=== PATIENT | female | born 1960 ===

== ENCOUNTER 2017-12-19 00:42 | Inpatient (IN) | payer OTHER ==
[2017-12-19] MEDS ORDERED: Sodium Chloride 0.9% 1,000 ML IV STA (01:15)
--- NOTE | 2017-12-19 01:24 | ED PDOC ---
Arrival/HPI - General Chief Complaint: Syncope Time Seen by Provider: 12/19/17 00:52 Historian: Patient, Spouse - History of Present Illness Narrative History of Present Illness (Text): 12/19/17 01:15 46 year old female, whose past medical history includes diabetes, presents to the emergency department s/p witnessed syncopal episode when walking to her chair. Patient's reported it lasted about a minute..Patient reports left sided head pain, but denies any fever, chills, chest pain, shortness of breath, nausea, vomiting, diarrhea, urinary symptoms, back pain, neck pain, headache, dizziness, or any other complaints. PMD: Dr. Alexandre 12/19/17 03:57 Symptom Onset: Sudden Symptom Course: Improving Activities at Onset: Light Context: Home Past Medical History - Provider Review Nursing Documentation Reviewed: Yes - Cardiac Hx Cardiac Disorders: No - Pulmonary Hx Respiratory Disorders: No - Neurological Hx Neurological Disorder: Yes Hx Syncope: Yes - HEENT Hx HEENT Disorder: No - Renal Hx Renal Disorder: No - Endocrine/Metabolic Hx Endocrine Disorders: Yes Hx Diabetes Mellitus Type 2: Yes - Hematological/Oncological Hx Blood Disorders: No - Integumentary Hx Dermatological Disorder: No - Musculoskeletal/Rheumatological Hx Musculoskeletal Disorders: No - Gastrointestinal Hx Gastrointestinal Disorders: No - Genitourinary/Gynecological Hx Genitourinary Disorders: No - Psychiatric Hx Psychophysiologic Disorder: No Hx Substance Use: No - Anesthesia Hx Anesthesia: No Family/Social History - Physician Review Nursing Documentation Reviewed: Yes Family/Social History: No Known Family HX Smoking Status: Never Smoked Hx Alcohol Use: No Hx Substance Use: No Allergies/Home Meds Allergies/Adverse Reactions: Allergies No Known Allergies Allergy (Verified 12/19/17 01:03) Home Medications: Home Meds Medication Instructions Recorded Confirmed Unobtainable 12/19/17 12/19/17 Review of Systems - Physician Review All systems were reviewed & negative as marked: Yes - Review of Systems Constitutional: absent: Fevers, Other (Chills) Respiratory: absent: SOB Cardiovascular: absent: Chest Pain Gastrointestinal: absent: Diarrhea, Nausea, Vomiting Genitourinary Female: absent: Dysuria, Frequency, Hematuria Musculoskeletal: Other (left sided head pain). absent: Back Pain, Neck Pain Neurological: absent: Headache, Dizziness Physical Exam Vital Signs Reviewed: Yes Vital Signs Temp Pulse Resp BP Pulse Ox 12/19/17 02:30 98.6 F 64 18 92/59 L 100 12/19/17 01:05 98.2 F 66 17 125/75 99 Temperature: Afebrile Blood Pressure: Normal Pulse: Regular Respiratory Rate: Normal Appearance: Positive for: Well-Appearing, Non-Toxic, Comfortable Pain Distress: None Mental Status: Positive for: Alert and Oriented X 3 - Systems Exam Head: Present: Atraumatic, Normocephalic Pupils: Present: PERRL Extroacular Muscles: Present: EOMI Conjunctiva: Present: Normal Mouth: Present: Moist Mucous Membranes Neck: Present: Normal Range of Motion Respiratory/Chest: Present: Clear to Auscultation, Good Air Exchange. No: Respiratory Distress, Accessory Muscle Use Cardiovascular: Present: Regular Rate and Rhythm, Normal S1, S2. No: Murmurs Abdomen: No: Tenderness, Distention, Peritoneal Signs Back: Present: Normal Inspection Upper Extremity: Present: Normal Inspection. No: Cyanosis, Edema Lower Extremity: Present: Normal Inspection. No: Edema Neurological: Present: GCS=15, CN II-XII Intact, Speech Normal Skin: Present: Warm, Dry, Normal Color. No: Rashes Psychiatric: Present: Alert, Oriented x 3, Normal Insight, Normal Concentration Medical Decision Making ED Course and Treatment: 12/19/17 01:25 Impression: 57 year old female presents s/p witnessed syncopal episode. Patient reports left -sided head pain. r/o intracranial cardiac metabolic etiology Plan: -- CT head w/o contrast -- EKG -- Labs, Glucose, POC routine -- Chest X-Ray -- IV Fluids -- HCG, Qualit. Urine, Urinalysis -- Reassess and disposition Progress Notes: 12/19/17 01:40 EKG shows Sinus Bradycardia at [address]/T wave changes. Interpreted by me CXR Impression: As read by me, no acute disease. 12/19/17 02:[address] Grimm who is aware and agrees with the plan. Accepts patient into her service to Telemetry for syncope. EXAM: CT Head Without Intravenous Contrast Dictated and Authenticated by: Genna Heaton MD 12/19/2017 3:05 AM IMPRESSION: No evidence of an acute intracranial hemorrhage, midline shift or mass effect is identified. 12/19/17 04:22 - Lab Interpretations Lab Results: 12/19/17 01:44 12/19/17 01:44 Lab Results 12/19/17 02:30: Urine Color Yellow, Urine Appearance Clear, Urine pH 6.0, Ur Specific [place] 1.015, Urine Protein Negative, Urine Glucose (UA) Negative, Urine Ketones Negative, Urine Blood Negative, Urine Nitrate Negative, Urine Bilirubin Negative, Urine Urobilinogen 0.2, Ur Leukocyte Esterase Negative, Urine HCG, Qual Negative 12/19/17 01:44: Sodium 143, Potassium 3.5 L, Chloride 101, Carbon Dioxide 29, Anion Gap 17, BUN 19, Creatinine 0.8, Est GFR ( Amer) > 60, Est GFR (Non- Af Amer) > 60, Random Glucose 118 H, Calcium 9.5, Magnesium 1.9, Total Bilirubin 0.2, AST 21, ALT 25, Alkaline Phosphatase 54, Lactate Dehydrogenase 349, Total Creatine Kinase 59, Troponin I < 0.01, Total Protein 7.8, Albumin 4.6 , Globulin 3.3, Albumin/Globulin Ratio 1.4 12/19/17 01:44: PT 11.3, INR 0.99, APTT 30.7 12/19/17 01:44: WBC 8.0, RBC 3.97, Hgb 11.8 L, Hct 34.7 L, MCV 87.4, MCH 29.7, MCHC 34.0, RDW 13.6, Plt Count 226, MPV 10.9, Gran % 68.5 H, Lymph % (Auto) 25.3 , [place] % (Auto) 5.3, Eos % (Auto) 0.6 L, Baso % (Auto) 0.3, Gran # 5.46, Lymph # (Auto) 2.0, [place] # (Auto) 0.4, Eos # (Auto) 0.1, Baso # (Auto) 0.02 12/19/17 01:01: POC Glucose (mg/dL) 117 H I have reviewed the lab results: Yes - RAD Interpretation Radiology Orders: 12/19/17 01:14 CHEST PORTABLE [RAD] Stat 12/19/17 01:15 HEAD W/O CONTRAST [CT] Stat - EKG Interpretation Interpreted by ED Physician: Yes Type: 12 lead EKG - Medication Orders Current Medication Orders: Discontinued Medications Sodium Chloride (Sodium Chloride 0.9%) 1,000 mls @ 999 mls/hr IV .Q1H1M STA Stop: 12/19/17 02:15 Last Admin: 12/19/17 02:22 Dose: 999 mls/hr eMAR Start Stop Document 12/19/17 02:22 SH (Rec: 12/19/17 02:22 SH [id number]) Intravenous Solution Start Date 12/19/17 Start Time 02:22 Potassium Chloride (K-Dur 20 Meq Er Tab) 20 meq PO STAT STA Stop: 12/19/17 02:10 Last Admin: 12/19/17 02:22 Dose: 20 meq - Scribe Statement The provider has reviewed the documentation as recorded by the Maikol Luna Provider Scribe Attestation: All medical record entries made by the Maikol were at my direction and personally dictated by me. I have reviewed the chart and agree that the record accurately reflects my personal performance of the history, physical exam, medical decision making, and the department course for this patient. I have also personally directed, reviewed, and agree with the discharge instructions and disposition. Disposition/Present on Arrival - Present on Arrival Any Indicators Present on Arrival: No History of DVT/PE: No History of Uncontrolled Diabetes: No Urinary Catheter: No History of Decub. Ulcer: No History Surgical Site Infection Following: None - Disposition Have Diagnosis and Disposition been Completed?: Yes Diagnosis: Syncope Disposition: HOSPITALIZED Disposition Time: 04:20 Condition: STABLE
[2017-12-19 01:54] LABS: BASO # 0.02 K/mm3 (0.0-2.0); BASO % 0.3 % (0.0-3.0); EOS # 0.1 (0.0-0.7); EOS % 0.6 % (1.5-5.0); GRAN # 5.46 (1.4-6.5); GRAN % 68.5 % (50.0-68.0); HEMOGLOBIN 11.8 g/dL (12.0-16.0); LYMPH % 25.3 % (22.0-35.0); MEAN CELL VOLUME 87.4 fl (80.0-105.0); MEAN CORPUSCULAR HEMOGLOBIN 29.7 pg (25.0-35.0); MEAN PLATELET VOLUME 10.9 fl (7.0-11.0); MONO # 0.4 (0.1-0.6); MONO % 5.3 % (1.0-6.0); RBC 3.97 10^6/uL (3.5-6.1); RED CELL DISTRIBUTION WIDTH 13.6 % (11.5-14.5)
[2017-12-19 02:08] LABS: ALB/GLOB RATIO 1.4 (1.1-1.8); ALBUMIN 4.6 g/dL (3.0-4.8); ALT/SGPT 25 U/L (7-56); AST/SGOT 21 U/L (14-36); BLOOD UREA NITROGEN 19 mg/dL (7-21); CALCIUM 9.5 mg/dL (8.4-10.5); GFR AFRICAN-AMERICAN > 60; GFR NON-AFRICAN AMERICAN > 60
[2017-12-19 02:09] LABS: INR 0.99 (0.93-1.08); PARTIAL THROMBOPLASTIN TIME 30.7 Seconds (25.1-36.5); PROTHROMBIN TIME 11.3 SECONDS (9.4-12.5)
[2017-12-19] MEDS ORDERED: Potassium Chloride 20 mEq ER Tab PO STA (02:09)
[2017-12-19 02:19] LABS: TROPONIN I < 0.01 ng/mL
[2017-12-19 02:52] LABS: URINE BILIRUBIN NEGATIVE (NEGATIVE); URINE BLOOD NEGATIVE (NEGATIVE); URINE GLUCOSE (UA) NEGATIVE (NEGATIVE); URINE LEUKOCYTE ESTERASE NEGATIVE Leu/uL (NEGATIVE); URINE PROTEIN NEGATIVE mg/dL (<30 mg/dL); URINE UROBILINOGEN 0.2 E.U./dL (<1 E.U./dL)
[2017-12-19 02:57] LABS: URINE APPEARANCE CLEAR (CLEAR); URINE COLOR YELLOW (YELLOW)
[2017-12-19 02:58] LABS: HCG,QUALITATIVE URINE NEGATIVE (NEGATIVE)
--- NOTE | 2017-12-19 03:06 | CT ---
EXAM: CT Head Without Intravenous Contrast CLINICAL HISTORY: 57 years old, female; Signs and symptoms; Syncope and collapse TECHNIQUE: Axial computed tomography images of the head/brain without intravenous contrast. All CT scans at this facility use one or more dose reduction techniques, viz.: automated exposure control; ma/kV adjustment per patient size (including targeted exams where dose is matched to indication; i.e. head); or iterative reconstruction technique. 355 images are submitted. Axial images are submitted as brain and bone windows. Coronal and sagittal reformatted images were created and reviewed. Axial reformatted images were created and reviewed. COMPARISON: No relevant prior studies available. FINDINGS: Brain: Unremarkable. No hemorrhage. No significant white matter disease. No edema. Ventricles: Unremarkable. No ventriculomegaly. Bones/joints: Unremarkable. No acute fracture. Soft tissues: Unremarkable. Sinuses: Unremarkable. No acute sinusitis. Mastoid air cells: Unremarkable. No mastoid effusion. Orbits: The globe and lens are intact. IMPRESSION: No evidence of an acute intracranial hemorrhage, midline shift or mass effect is identified.
[2017-12-19 05:20] VITALS: BMI 27.4
[2017-12-19] MEDS ORDERED: Sodium Chloride 0.9% 100 ML IV SCH (11:30)
--- NOTE | 2017-12-19 11:36 | RAD ---
HISTORY: Syncope COMPARISON: No prior. FINDINGS: LUNGS: No active pulmonary disease. PLEURA: No significant pleural effusion identified, no pneumothorax apparent. CARDIOVASCULAR: Normal. OSSEOUS STRUCTURES: No significant abnormalities. VISUALIZED UPPER ABDOMEN: Normal. OTHER FINDINGS: None. IMPRESSION: No active disease.
[2017-12-19] MEDS: Insulin Reg-LOW-Coverage SC SCH ×3 (12:46→22:53)
[2017-12-19] MEDS: Sodium Chloride 0.9% 1,000 ML IV SCH ×2 (12:51→23:39)
--- NOTE | 2017-12-19 13:23 | CON ---
DATE: 12/19/2017 NEUROLOGY CONSULT CHIEF COMPLAINT: Syncope. HISTORY OF PRESENT ILLNESS: This is a 57-year-old woman with history of diabetes, hypertension, who was doing an 18-hour shift for [employer] and was walking to her chair and had a syncopal episode, which lasted about a minute. No seizure-like activity. She hit the left side of her head. CAT scan of the head showed no acute intracranial abnormality. Currently, she is moving all extremities, doing much better. She had low systolic and diastolic blood pressure, seen very dehydrated, but otherwise no focal neurological symptoms seen on the examination or signs. PAST MEDICAL HISTORY: Diabetes and hypertension. REVIEW OF SYSTEMS: Fourteen-point review of systems is negative except as per the HPI. MEDICATIONS: Reviewed by nurses' reconciliation sheet. SOCIAL HISTORY: No illicit drug use, smoking or EtOH abuse. FAMILY HISTORY: Noncontributory. PHYSICAL EXAMINATION: VITAL SIGNS: Temperature 98.6, pulse rate of 88, blood pressure 102/64, respiratory rate of 16, oxygen saturation 98% by room air. GENERAL: The patient is sitting up in bed, in no acute distress. HEENT: Atraumatic, normocephalic. PERRLA. Extraocular muscles intact. NECK: Supple. No JVD. No adenopathy noted. LUNGS: Clear to auscultation. No adventitious sounds. HEART: S1, S2. Normal rate and rhythm. No murmurs, rubs or gallops. ABDOMEN: Soft, nontender and nondistended. Bowel sounds are present. EXTREMITIES: No clubbing. No cyanosis. Peripheral pulses 2+ felt bilaterally. NEUROLOGIC: The patient is alert and oriented to person, place, month and year. Speech is fluent without any errors. Cranial nerves II through XII intact. Motor exam: Moves all extremities equally. Toes are downgoing bilaterally. Sensory exam: Light touch, pinprick, proprioception and vibration are intact. DTRs are 2+ throughout. Coordination: [id number] intact. No dysmetria noted. Gait is deferred for now. LABORATORY DATA: Sodium is 143, potassium 3.5, chloride of 101, carbon dioxide 29, BUN of 19, creatinine 0.8, random glucose 118. ASSESSMENT AND PLAN: This is a 57-year-old woman with past medical history of hypertension, type 2 diabetes mellitus, had a syncopal event. She was having very poor sleep hygiene and she has been stressful with working 18-hour shifts. She has a low systolic and diastolic blood pressures. Most likely her syncope is most likely is a vasovagal event secondary to transient cerebral hypoperfusion to the brain, unlikely a seizure at all. At this time, I recommend, 1. Orthostatic vital signs. 2. Carotid Doppler. 3. An echocardiogram. 4. Physical Therapy assessment. At this time, she is clinically stable. Monitor electrolytes and adequate hydration. Thank you for this consult. Sha Lundy MD
--- NOTE | 2017-12-19 16:43 | CARD ---
APPROVED REPORT EXAM: Two-dimensional and M-mode echocardiogram with Doppler and color Doppler. INDICATION Syncope 2D DIMENSIONS Left Atrium (2D)3.7 (1.6-4.0cm)IVSd1.2 (0.7-1.1cm) LVDd4.8 (3.9-5.9cm)PWd0.8 (0.7-1.1cm) LVDs3.4 (2.5-4.0cm)FS (%) 29.7 % LVEF (%)56.5 (>50%) M-Mode DIMENSIONS Aortic Root2.10 (2.2-3.7cm)Aortic Cusp Exc.1.60 (1.5-2.0cm) Aortic Valve AoV Peak Eomagzvo179.0cm/Clint Peak GR.10mmHg Mitral Valve MV E Nuqqbgxx08.3cm/sMV A Phttongy43.1cm/sE/A ratio1.2 TDI E/Lateral E'0.0E/Medial E'0.0 Tricuspid Valve TR Peak Phstrdfb534bi/sRAP [id number] Peak Gr.32mmHg [id number] LEFT VENTRICLE The left ventricle is normal size. There is normal left ventricular wall thickness. The left ventricular function is normal. The left ventricular ejection fraction is within the normal range. There is normal LV segmental wall motion. The left ventricular diastolic function is normal. RIGHT VENTRICLE The right ventricle is normal size. There is normal right ventricular wall thickness. The right ventricular systolic function is normal. ATRIA The left atrium size is normal. The right atrium size is normal. AORTIC VALVE The aortic valve is normal in structure. No aortic regurgitation is present. MITRAL VALVE The mitral valve is normal in structure. Mitral regurgitation is trace. There is no mitral valve stenosis. There is no evidence of mitral valve prolapse. TRICUSPID VALVE There is mild tricuspid regurgitation. There is mild pulmonary hypertension. PULMONIC VALVE The pulmonary valve is normal in structure. There is mild pulmonic valvular regurgitation. GREAT VESSELS The aortic root is normal in size. The IVC is normal in size and collapses >50% with inspiration. PERICARDIAL EFFUSION There is no pericardial effusion. <Conclusion> The left ventricle is normal size. There is normal left ventricular wall thickness. The left ventricular function is normal. The left ventricular ejection fraction is within the normal range. There is normal LV segmental wall motion. The left ventricular diastolic function is normal. There is mild tricuspid regurgitation. There is mild pulmonary hypertension.
--- NOTE | 2017-12-19 17:02 | CARD ---
APPROVED REPORT EKG Measurement Heart [id number] <Conclusion> Sinus bradycardia Otherwise normal ECG
--- NOTE | 2017-12-19 23:08 | HP ---
DATE OF EXAM: 12/19/2017 HISTORY OF PRESENT ILLNESS: This 57-year-old female was examined on the cardiac unit. She was admitted to the [facility] ER after a syncopal episode at home. The patient stated last evening she was resting comfortably in her home. She was walking in her room to her chair when she lost consciousness and was found by her who reported that she was on the floor after having hit her left side of her head, but denying any visual changes, nausea, vomiting or headache. In the emergency room, she underwent a head CT that was unremarkable for any intracranial hemorrhage or stroke and was admitted to the [facility] for further evaluation of syncope. PAST MEDICAL HISTORY: Significant for uni-rvnrfqc-tsdxuwnba diabetes mellitus and she takes cholesterol medication and Zestril as well. The patient states that she did have one episode of hypotension in her home where she had another syncopal episode prior and felt this might be related to her prescription Zestril. The patient denied any knowledge of seizure or stroke. REVIEW OF SYSTEMS: Constitutional review: Denied any fever or chills. Head review: Denied any headache. Eye review: Denied any change in visual acuity. Ear review: No hearing loss. Throat review: No swallowing difficulty. Neck review: No stiffness. Cardiac review: Chronic hypertension. Pulmonary: No cough. No hemoptysis. GI: No hematemesis. No melena. : No dysuria. Skin: No rash. Vascular: No claudication. Psychological: No depression. Neurological: No knowledge of stroke. SOCIAL HISTORY: She is a nondrinker, nonsmoker, non IV drug misuser. ALLERGIES: SHE DENIES ANY ALLERGIES TO MEDICATION. MEDICATIONS: States outpatient medications included metformin 500 mg p.o. b.i.d., Zocor 40 mg p.o. at bedtime and Zestril 2.5 mg p.o. daily. FAMILY HISTORY: Noncontributory. PHYSICAL EXAMINATION: VITAL SIGNS: Temperature 97.8, respirations 79, pulse 75, blood pressure 112/63. Pulse ox 97%. Orthostatic blood pressure: Lying down her systolic blood pressure 112/63, sitting 103/67, standing 118/66. The patient was in a normal sinus rhythm on the personnel monitor. HEENT: Head: Normocephalic, atraumatic. Eyes: No icterus. Ears: Clear. Throat: Noninjected. NECK: Supple. HEART: Regular S1, S2. No pathological rubs, murmurs or gallops. LUNGS: Clear. ABDOMEN: Soft. EXTREMITIES: No edema. SKIN: Without rash. NEUROLOGICAL: Grossly intact. PSYCHOLOGICAL: Alert and oriented x3. VASCULAR: Legs warm to touch. SKIN: Without ulcers. LABORATORY DATA: White count 8000, hemoglobin 11.8, hematocrit 34.7, platelets 226,000. PT/INR 0.99, PTT 30.7. Sodium 143, K 3.5, chloride 101, bicarb 29, BUN 19, creatinine 0.8, random blood sugar 118, magnesium 1.9, calcium 9.5, bilirubin 0.2, AST 21, ALT 25 and alk phos 54. CPK normal at 59. Troponin normal less than 0.01. Urinalysis unremarkable. Head CT was reviewed. It showed no evidence of intracranial hemorrhage or stroke. EKG was reviewed. It showed normal sinus rhythm with no evidence of cardiac arrhythmia. Chest x-ray was reviewed. It showed no evidence of infiltrate, effusion, pneumothorax or congestive heart failure. IMPRESSION: A 57-year-old female with syncope, history of kjo-nhrkpqt-tynlmgzhe diabetes mellitus, hypertension and hyperlipidemia. PLAN: The plan at present is to await consultation with Dr. Sha Lundy from Neurology. I have ordered replacing potassium and a lipid panel to be performed as well as a potassium level 05:00 a.m. in the morning. She will continue on regular low-dose insulin protocol before meals and at bedtime. She is ordered to have 0.9 saline at 100 mL/hour. She will be scheduled for a carotid ultrasound, heart healthy diet and monitored regarding the above. Additional testings and workup will be entertained based on her clinical progress and greater than 75 minutes was spent in the care and management, review of labs, orders and x-rays with the patient and nursing. All questions were answered. Jane Grimm MD [facility]
[2017-12-20] MEDS: Insulin Reg-LOW-Coverage SC SCH ×4 (08:32→22:20)
[2017-12-20] MEDS: Sodium Chloride 0.9% 1,000 ML IV SCH ×3 (10:13→19:49)
--- NOTE | 2017-12-21 01:10 | PN ---
DATE: 12/20/2017 SUBJECTIVE: This 57-year-old female was examined on the cardiac li. She is in a normal sinus rhythm, out of bed to chair, and denying fever, chills, chest pain or shortness of breath. PHYSICAL EXAMINATION: VITAL SIGNS: On physical exam, she is in normal sinus rhythm, temperature 97.6, respirations 20, pulse 69, blood pressure 111/61. HEENT: Head normocephalic, atraumatic. Eyes: No icterus. Ears: Clear. Throat: Noninjected. NECK: Supple. HEART: Regular S1 and S2. No pathological rubs, murmurs, or gallops. LUNGS: Clear. ABDOMEN: Soft. EXTREMITIES: No edema. SKIN: Without rash. NEUROLOGICAL: Intact. PSYCHOLOGICAL: Alert. VASCULAR: Legs warm to touch. LABORATORY DATA: White count 8000, hemoglobin 11.8, hematocrit 34.7, platelets 226,000. PT/INR 0.99, PTT 30.7. Random potassium 4.1, blood sugar 97. Cholesterol 177, triglycerides 132, LDL 92, HDL 44. Head CT was reviewed. It showed no evidence of infarct, intracranial hemorrhage or fracture. Chest x-ray was reviewed. There was no evidence of CHF, infiltrate, pneumothorax or pleural effusion. An echocardiogram was reviewed and showed normal left ventricle size, wall thickness, function, with normal left ventricular systolic wall motion. IMPRESSION: The patient was evaluated by Dr. Sha Lundy from Neurology. It is his impression that the patient has very poor sleep hygiene with 18-hour work shifts, and admission low systolic diastolic blood pressure probably causing a vasovagal reaction and syncope, which then caused transient ischemia and perfusion to her brain as a cause of the syncope; he doubts a seizure as well. The patient at present is pending carotid ultrasound. Blood pressure medication Zestril has been withheld. She is currently off metformin, and is receiving regular low-dose insulin protocol before meals and at bedtime. I did discuss at the bedside with the patient, her history of hyperlipidemia, hypertension and diabetes mellitus. She expressed to me that she has lost in excess of 50 pounds in the past 6 months and it is possible that the patient does not require any further medication at this time for treatment of previous issues with cholesterol, hypertension and hyperglycemia. At present, the patient will remain on the cardiac li. We will await the results of her carotid ultrasound. She continues on a heart-healthy soft bland diabetic diet, and will continue on 0.9 saline at 100 mL/hour. Ultimate plan will be for discharge to home with medical followup as an outpatient. Greater than 35 minutes was spent in the care management, review of labs, orders and x-rays for this patient today. All questions were answered. Jane Grimm MD MTDD
[2017-12-21] MEDS: Sodium Chloride 0.9% 1,000 ML IV SCH ×2 (05:00→12:15)
[2017-12-21] MEDS: Insulin Reg-LOW-Coverage SC SCH ×2 (07:57→11:50)
--- NOTE | 2017-12-21 10:01 | US ---
PROCEDURE: Bilateral carotid artery duplex ultrasound HISTORY: Carotid stenosis syncope PHYSICIAN(S): Shar Sullivan MD. TECHNIQUE: Duplex sonography and color-flow Doppler were used to evaluate the carotid bifurcations and limited segments of the vertebral arteries bilaterally. FINDINGS: There is mild smooth heterogeneous plaque noted at the carotid bifurcations bilaterally. The peak systolic velocity in the proximal right internal carotid artery is 75 cm/sec. This corresponds to a 20 to 39% proximal right ICA stenosis. Normal systolic velocities are noted in the proximal right external carotid artery. There is antegrade flow in the right vertebral artery. The peak systolic velocity in the proximal left internal carotid artery is 96 cm/sec. This corresponds to a 20 to 39% proximal left ICA stenosis. Normal systolic velocities are noted in the proximal left external carotid artery. There is antegrade flow in the left vertebral artery. IMPRESSION: 1. Bilateral 20-39% proximal ICA stenoses. 2. Antegrade flow in both vertebral arteries.
[2017-12-21 10:51] VITALS: O2SAT 99
[2017-12-21 13:03] VITALS: BP 122/76; PULSE 63; RESP 18; TEMP 98.3
--- NOTE | 2017-12-22 10:41 | DS ---
FINAL DIAGNOSES: Syncope secondary to vasovagal event, history of obesity, history of non-insulin dependent diabetes mellitus, history of hypertension, history of hyperlipidemia. Discharge to home. The patient was advised to follow up with her PMD, Dr. Laureano within the next 48 hours. DISPOSITION: Home. DISCHARGE DIET: Heart-healthy soft bland, moderate carbohydrates. DISCHARGE MEDICATIONS: None at present. CARAMEL CUTTER HELPER: Dr. Sha Lundy from Neurology. SUMMARY: This is a 57-year-old female was admitted to [facility] after a syncopal episode at home and being noted to be hypotensive in the emergency room, she was evaluated by Neurology who felt this was secondary to a vasovagal event and patient's cholesterol, blood pressure and diabetic medication was withheld. She was treated with IV fluid hydration and not noted to be orthostatic. At the time of discharge, temperature was 97.1, respirations 20, pulse 64 and blood pressure 122/75 with a pulse ox of 100% on room air. The patient was independent in ambulation. She was in a normal sinus rhythm on the director of cardiac cath lab. Her white count was 8000, hemoglobin 11.8, hematocrit 34.7, platelets were 226,000. PT/INR 0.99, PTT 30.7. Random blood sugar 89. Cholesterol 177, triglycerides 132, LDL 92, HDL 44. Potassium 4.1, sodium 143, K 4.3, chloride 101, bicarb 29, BUN 19, creatinine 0.8. All liver function testing was normal. The patient underwent diagnostic studies including echocardiography, chest x-ray, EKG, head CT and carotid ultrasound; all of which were unremarkable. The patient is discharged to home. She has been advised to hold all medication at present and to follow up with her PMD within the next 48 hours for further assessment as an outpatient. It is felt that her clinical presentation was consistent with a vasovagal event and patient will be monitored closely as an outpatient by her PMD. Jane Grimm MD [facility]Jose
== END 2017-12-21 13:02 | disposition home or self-care (01) | DRG 316 ==
LOC: ED 00:42 → ERH 03:07 → 2RSO 04:44
PROVIDERS: ADMIT Internal Medicine; ATTEND Internal Medicine
DX: I95.9 Hypotension, unspecified (principal); E11.9 Type 2 diabetes mellitus without complications; E78.5 Hyperlipidemia, unspecified; E86.0 Dehydration; I10 Essential (primary) hypertension